=== PATIENT | female | born 1990 | race Hispanic/Latino ===

== ENCOUNTER 2022-11-26 11:53 | Day surgery (SDC) | payer BC ==
[2022-11-26 12:17] VITALS: BMI 33.6
[2022-11-26] MEDS ORDERED: hydrALAZINE 20 MG/ML VIAL SLOW IVP PRN (12:43)
[2022-11-26 13:28] LABS: Fetal Membranes Rupture No Membranes Rupture (No Rupture)
== END 2022-11-26 15:00 | disposition home or self-care (01) ==
LOC: CSHLD/OP 11:53
PROVIDERS: ATTEND Student in an Organized Health Care Education/Training Program
DX: O47.03 False labor before 37 completed weeks of gestation, third trimester (principal); Z3A.34 34 weeks gestation of pregnancy
CPT/HCPCS: 76819; 84112; 99283